=== PATIENT | female | born 1940 | race Caucasian/White ===

== ENCOUNTER 2019-10-16 11:01 | Outpatient (CLI) | payer MEDICARE, BC, SELFPAY ==
[2019-10-16 11:23] VITALS: BP 145/87; PULSE 73; RESP 20; TEMP 36.8; O2SAT 98
[2019-10-16] MEDS: denosumab 60 mg SDV SUBCUT (11:30)
[2019-10-16 12:00] VITALS: BP 142/91; PULSE 96; RESP 16; TEMP 36.6; O2SAT 96
== END 2019-10-16 11:02 | disposition home or self-care (01) ==
LOC: RHEOACUTE 11:02
PROVIDERS: Visit Provider Internal Medicine Rheumatology
DX: M81.0 Age-related osteoporosis without current pathological fracture (principal)
CPT/HCPCS: 96372; J0897

== ENCOUNTER 2019-12-06 08:58 | Emergency (ER) | payer MEDICARE, BC, SELFPAY ==
[2019-12-06 09:06] VITALS: BP 179/117; PULSE 93; RESP 18; TEMP 36; O2SAT 96; BMI 24.8
--- NOTE | 2019-12-06 09:13 | ECG_ITS ---
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 Measurements Intervals [place] Rate: 79 P: 77 [place]: 175 QRS: 63 QRSD: 156 T: 115 QT: 382 QTc: 440 Interpretive Statements SINUS RHYTHM LEFT BUNDLE BRANCH BLOCK [120+ ms QRS DURATION, 80+ ms Q/S IN V1/V2, 85+ ms R IN I/aVL/V5/V6] No previous ECG available for comparison Electronically Signed On 12-06-2019 20:53:02 CDT by Jonah Matias M.D. [id number]
--- NOTE | 2019-12-06 09:13 | XRR_ITS ---
PROCEDURE INFORMATION: Exam: XR Chest, 1 View Exam date and time: 12/06/2019 10:30 AM Age: 79 years old Clinical indication: Dyspnea; Additional info: Dyspnea/cough TECHNIQUE: Imaging protocol: XR of the chest Views: 1 view. COMPARISON: [facility] Chest 2 views 10/07/2018 9:25 AM FINDINGS: Lungs: Hyperinflation. No CHF or focal consolidation. Pleural space: Bilateral apical pleural thickening. No pleural effusion. No pneumothorax. Heart/Mediastinum: Aortic tortuosity. No cardiomegaly. Bones/joints: No acute findings. XR/XR chest 1V portable [id number] IMPRESSION: No acute findings.
[2019-12-06 09:28] VITALS: O2SAT 100
--- NOTE | 2019-12-06 09:28 | CTR_ITS ---
PROCEDURE INFORMATION: Exam: CT Head Without Contrast Exam date and time: 12/06/2019 9:51 AM Age: 79 years old Clinical indication: Other: Loss of vision and headache; Additional info: Loss of left field of vision TECHNIQUE: Imaging protocol: Computed tomography of the head without contrast. Radiation optimization: All CT scans at this facility use at least one of these dose optimization techniques: automated exposure control; mA and/or kV adjustment per patient size (includes targeted exams where dose is matched to clinical indication); or iterative reconstruction. COMPARISON: No relevant prior studies available. RADIATION DOSE METRICS: Total DLP (mGy-cm): 536.43 FINDINGS: Brain: Acute right parieto-occipital hemorrhage estimated at 2.5 cm maximum diameter. Minimal adjacent edema, no significant mass effect. Chronic ischemic change. Ventricles: No hydrocephalus or intraventricular hemorrhage. Bones/joints: Unremarkable. No acute fracture. Sinuses: No acute sinusitis. Mastoid air cells: Unremarkable. Soft tissues: Unremarkable. CT/CT head wo con* [id number] IMPRESSION: Acute right parieto-occipital hemorrhage, approximately 2.5 cm in diameter. THIS REPORT CONTAINS FINDINGS THAT MAY BE CRITICAL TO PATIENT CARE. The findings were verbally communicated via telephone conference with Micheal Valdez at 11:14 AM CDT on 12/06/2019. The findings were acknowledged and understood. Radiation Dose CTDIVOL = (mGy): DLP = 536.43 (mGy-cm)
--- NOTE | 2019-12-06 09:31 | ED_ITS ---
HPI - Headache General: Chief Complaint: Headache Stated Complaint: H/A LOST VISION LAST NIGHT Time Seen by Provider: 12/06/19 09:12 History of Present Illness: HPI Narrative: 79-year-old female presents emergency room with complaint of loss of the left side visual field. Its been going on since last night initially she had some disorientation with that that part is resolved she still has complaint of left visual field deficit. She has a headache she relates to mostly in the right frontal side. She has no nausea or vomiting associated with it she not had any chest pain or shortness of breath. She denies history of diabetes or hypertension although her blood pressure is elevated today. No history of trauma to the head or fall she has not had any syncopal episodes. She did have what amounts to a floater prior to this episode that she noted usually in her left thigh that has seemed to resolve. MD elicited complaint: headache and other (Visual field changes) Onset (ago): hour(s) Onset description: suddenly Location: right and frontal Severity: mild Quality & Timing: aching and throbbing Exacerbating factors: none Relieving factors: nothing Context: occurred at rest Associated symptoms: Reports no associated symptoms, confusion and loss of vision; Deny chest pain, cough, diaphoresis, eye pain, eye redness, fever(s), lightheadedness, malaise, nausea, neck stiffness, numbness, paresthesias, pre- syncope, rash, seizures, short of breath, sound sensitivity, syncope, vomiting or weakness Treatments prior to arrival: none Review of Systems Const: Denies: fever(s), malaise or diaphoresis ENMT: Denies: throat pain, ear or mastoid pain, nasal discharge or nasal congestion Card: Denies: chest pain, lightheadedness, syncope or pre-syncope Resp: Denies: dyspnea, productive cough or non-productive cough GI: Denies: nausea or vomiting : Denies: flank pain, difficulty voiding, dysuria, urinary frequency or urinary urgency Skin/Breast: Denies: rash or pruritus Neuro: Reports: confusion PFSH ED PFSH: Medical History (Updated 12/06/19 @ 09:36 by Micheal Valdez DO) Chronic lung disease Ganglion and cyst of synovium, tendon and bursa Hypothyroidism Surgical History (Updated 12/06/19 @ 09:36 by Micheal Valdez DO) H/O dilation and curettage Social History (Updated 12/06/19 @ 09:36 by Micheal Valdez DO) Smoking and tobacco status: never smoked Alcohol intake: never Physical Exam Const: COMMON NORMALS: no acute distress GENERAL APPEARANCE: cooperative and comfortable ORIENTATION/CONSCIOUSNESS: Yes awake, Yes oriented to person, Yes oriented to place and Yes oriented to time HENMT: COMMON NORMALS: normocephalic, atraumatic and hearing grossly normal bilaterally HEAD & SCALP: normocephalic and atraumatic Eye: COMMON NORMALS: Equal, round and reactive pupils present, EOMs intact bilaterally, conjunctivae normal and no scleral icterus CONJUNCTIVA: Yes conjunctivae normal PUPIL: Yes Equal, round and reactive pupils present OTHER: On field of vision testing patient has a significant left field of vision deficit. There is no neglect. Neck/C-Spine: COMMON NORMALS: full ROM, no lymphadenopathy, supple and no JVD Lymph: LYMPHATIC: no lymphadenopathy noted and no lymphedema noted Resp: COMMON NORMALS: normal respiratory effort, No retractions, No use of accessory muscles and clear to auscultation bilaterally AUSCULTATION: clear to auscultation bilaterally Cardio: COMMON NORMALS: no JVD, regular rate, regular rhythm and No murmurs present (Cardio) RATE: regular rate RHYTHM: regular rhythm GI: COMMON NORMALS: Soft to palpation and No hepatosplenomegaly present AUSCULTATION: Yes normoactive bowel sounds PALPATION: Yes Soft to palpation, No Tenderness to palpation present (GI), No Guarding due to palpation present (GI) and Yes No hepatosplenomegaly present Extremity: COMMON NORMALS: normal to inspection, capillary refill normal, no clubbing, cyanosis or edema, no calf tenderness and no pedal edema Neuro: SENSORIUM/ORIENTATION: Yes oriented to person, Yes oriented to place and Yes oriented to time Skin: COMMON NORMALS: no rashes or lesions noted GENERAL SKIN EXAM: no rashes or lesions noted Course Vital Signs: Vital signs: Vital Signs Temperature 96.8 F L 12/06/19 09:06 Pulse Rate 80 12/06/19 12:40 Respiratory Rate 20 H 12/06/19 12:40 Blood Pressure 146/96 12/06/19 12:40 Pulse Oximetry 100 12/06/19 12:40 MDM - Headache MDM Narrative: Medical decision making narrative: Right occipital intracranial hemorrhage 2.[address] head discussed with the patient she is stable at this time still has a left visual field deficit. We will transfer her to [facility] for evaluation and monitoring by neurosurgery neurosurgery not available at [facility]. Lab Data: Labs: Lab Results 12/06/19 12/06/19 12/06/19 Range/Units 09:29 09:29 10:21 WBC 4.4 (4.0-10.0) 10^3/ uL RBC 4.77 (4.1-5.3) 10^6/u L Hgb 14.3 (11.5-15.3) g/dL Hct 45.7 (37.0-47.0) % MCV 95.8 (81-99) fL MCH 30.0 (28.0-34.0) pg MCHC 31.3 (30.0-36.0) g/dL RDW 13.1 (12.1-15.1) % Plt Count 195 (130-400) 10^3/c mm MPV 10.3 (7.4-10.4) fL Neut % (Auto) 70.4 % Lymph % (Auto) 18.9 % [place] % (Auto) 7.5 % Eos % (Auto) 2.5 % Baso % (Auto) 0.5 % Neut # (Auto) 3.08 (1.8-7.7) 10^3/u L Lymph # (Auto) 0.8 (0.8-4.8) 10^3/u L [place] # (Auto) 0.3 (0.2-0.9) 10^3/u L Eos # (Auto) 0.1 (0.0-0.8) 10^3/u L Baso # (Auto) 0.0 (0.0-0.1) 10^3/u L Nucleated RBC % (a uto) 0 % Nucleated RBCs # 0.0 /100WBC Sodium 140 (136-145) mmol/L Potassium 4.1 (3.5-5.1) mmol/L Chloride 102 (98-107) mmol/L Carbon Dioxide 31 H (22-29) mmol/L Anion Gap 11.1 (5-19) BUN 13 (8-23) mg/dL Creatinine 0.6 (0.5-0.9) mg/dL GFR Calculation Not Reportable Glucose 99 (65-115) mg/dL Calculated Osmolal ity 286 (285-295) mOsm/k g Calcium 8.9 (8.5-10.5) mg/dL Magnesium 1.9 (1.7-2.3) mg/dL Total Bilirubin 0.7 (0.15-1.2) mg/dL AST 13 (0-32) U/L ALT 10 (0-33) U/L Alkaline Phosphata se 44 (35-105) IU/L Total Protein 6.9 (6.6-8.7) g/dL Albumin 4.2 (3.5-5.2) g/dL Globulin 2.7 (1.3-4.6) g/dL Urine Color Yellow (Yellow) Urine Appearance Clear (CLEAR) Urine pH 8 H (5-7) Ur Specific Gravit y 1.010 (1.005-1.030) Urine Protein Neg (Negative) Urine Glucose (UA) Norm (Normal) Urine Ketones Negative (Negative) Urine Blood Neg (Negative) Urine Nitrate Negative (Negative) Urine Bilirubin Neg (NEGATIVE) Prot Sulfosalicyli c Acd Negative (Negative) Urine Urobilinogen Norm (Negative) mg/dL Ur Leukocyte Claudette ase Negative (Negative) Discharge Plan Discharge Patient Disposition: Transfer to ED Prescriptions: No Action ipratropium-albuterol 0.5 mg-3 mg(2.5 mg base)/3 mL solution for nebulization 3 ml INHALATION TID RF: 0 albuterol sulfate 2.5 mg /3 mL (0.083 %) solution for nebulization 2.5 mg inhalation Q4H PRN (Reason: Shortness Of Breath) RF: 0 Tylenol Extra Strength 500 mg Tablet 500 mg PO PRN RF: 0 Synthroid 50 mcg tablet 50 mcg PO DAILY RF: 0 budesonide 0.5 mg/2 mL suspension for nebulization 0.5 mg inhalation BID RF: 0 albuterol sulfate 90 mcg/actuation HFA aerosol inhaler 2 puff INHALATION QID PRN (Reason: Shortness Of Breath) RF: 0 Echinacea and Goldenseal 450 mg Capsule See Rx Instructions .ROUTE .COMPLEX RF: 0 Discharge Date/Time: 12/06/19 13:31 Coding Level of Care Code ED Senior Backup Administrator for Chg Fwd Exam Comprehensive
[2019-12-06 09:42] LABS: Basophils % 0.5 %; Eosinophils # 0.1 10^3/uL (0.0-0.8); Eosinophils % 2.5 %; Hematocrit 45.7 % (37.0-47.0); Hemoglobin 14.3 g/dL (11.5-15.3); Lymphocytes # 0.8 10^3/uL (0.8-4.8); Lymphocytes % 18.9 %; Mean Corpuscular HGB Conc 31.3 g/dL (30.0-36.0); Mean Corpuscular Volume 95.8 fL (81-99); Mean Platelet Volume 10.3 fL (7.4-10.4); Monocytes # 0.3 10^3/uL (0.2-0.9); Monocytes % 7.5 %; Neutrophils # 3.08 10^3/uL (1.8-7.7); Neutrophils % 70.4 %; Nucleated Red Blood Cells % 0 %; Platelet Count 195 10^3/cmm (130-400); Red Blood Count 4.77 10^6/uL (4.1-5.3); Red Cell Distribution Width 13.1 % (12.1-15.1); White Blood Count 4.4 10^3/uL (4.0-10.0)
[2019-12-06 10:15] LABS: Alanine Aminotransferase 10 U/L (0-33); Albumin Level 4.2 g/dL (3.5-5.2); Alkaline Phosphatase 44 IU/L (35-105); Anion Gap 11.1 (5-19); Aspartate Amino Transferase 13 U/L (0-32); Blood Urea Nitrogen 13 mg/dL (8-23); Calcium 8.9 mg/dL (8.5-10.5); Carbon Dioxide 31 mmol/L (22-29); Chloride 102 mmol/L (98-107); Globulin 2.7 g/dL (1.3-4.6); Glucose 99 mg/dL (65-115); Magnesium 1.9 mg/dL (1.7-2.3); Osmolality Calculated 286 mOsm/kg (285-295); Potassium 4.1 mmol/L (3.5-5.1); Sodium 140 mmol/L (136-145); Total Bilirubin 0.7 mg/dL (0.15-1.2); Total Protein 6.9 g/dL (6.6-8.7)
[2019-12-06 10:40] LABS: Add Urine Microscopic? NO
[2019-12-06 10:49] LABS: Glucose Urine UA Norm (Normal); Ketones Urine Negative (Negative); Protein Urine Neg (Negative); Urine Appearance Clear (CLEAR); Urine Color Yellow (Yellow); pH Urine 8 (5-7)
[2019-12-06 10:50] LABS: Bilirubin Urine Neg (NEGATIVE); Blood Urine Neg (Negative); Leukocyte Esterase Urine Negative (Negative); Nitrate Urine Negative (Negative); Sulfosalicylic Acid Urine Negative (Negative); Urobilinogen Urine Norm (Negative)
[2019-12-06 12:40] VITALS: BP 146/96; PULSE 80; RESP 20; O2SAT 100
== END 2019-12-06 13:31 ==
PROVIDERS: Emergency Provider Family Medicine
DX: R51 Headache (principal)
CPT/HCPCS: 12345; 36415; 70450; 71045; 80053; 81003; 83735; 85025; 93005; 99283; 99285

== ENCOUNTER 2020-03-31 09:51 | Emergency (ER) | payer MEDICARE, BC, SELFPAY ==
[2020-03-31 09:58] VITALS: BP 182/109; PULSE 90; RESP 18; TEMP 37.1; O2SAT 98; BMI 25.3
--- NOTE | 2020-03-31 10:02 | W.ED.LOWEXIN ---
HPI - Extremity Injury (Lower) General: Chief Complaint: Extremity Problem,Nontraumatic Stated Complaint: RIGHT LEG PAIN Time Seen by Provider: 03/31/20 10:01 Source: patient Mode of arrival: ambulatory Limitations: no limitations History of Present Illness: HPI Narrative: 80-year-old female comes in with right calf pain. Patient reports that she has had this increased pain and tenderness to her right calf starting this morning. Patient had taken a half a tablet of tramadol without any relief. Patient does have a history of CVA. Patient is also concerned for DVT. Review of Systems General: Reports: 10 or more systems reviewed and unremarkable except in HPI and below Musc: Reports: other (Right calf pain.) PFS ED PFSH: Medical History (Updated 03/31/20 @ 11:29 by SAYRA Hernandez) Chronic lung disease Ganglion and cyst of synovium, tendon and bursa Hypothyroidism Surgical History (Updated 12/06/19 @ 09:36 by Micheal Valdez DO) H/O dilation and curettage Social History (Updated 12/06/19 @ 09:36 by Micheal Valdez DO) Smoking and tobacco status: never smoked Alcohol intake: never Physical Exam Const: COMMON NORMALS: no acute distress, patient oriented x3 and alert GENERAL APPEARANCE: cooperative HENMT: COMMON NORMALS: normocephalic and Normal external nose present HEAD & SCALP: normal to inspection and normocephalic NOSE: Normal external nose present MOUTH: Normal oral and palatal mucosa present THROAT: posterior oropharynx normal Eye: GENERAL EYE: appearance normal, both eyes and all related structures Neck/C-Spine: COMMON NORMALS: full ROM Lymph: LYMPHATIC: no lymphadenopathy noted Chest: COMMONS NORMALS: normal inspection of the chest Resp: COMMON NORMALS: normal respiratory effort EFFORT & INSPECTION: Yes able to speak in complete sentences Cardio: COMMON NORMALS: regular rate and regular rhythm RATE: regular rate RHYTHM: regular rhythm GI: COMMON NORMALS: non-tender : COMMON NORMALS: Yes no CVA tenderness BLADDER/KIDNEY EXAM: Yes no CVA tenderness Back/Pelvis: COMMON NORMALS: no CVA tenderness and thoracic and lumbar spine normal to inspection Extremity: NARRATIVE EXTREMITY EXAM: Weakness to the right lower extremity, calf tenderness, positive Homans side right side. Neuro: ERIS COMA SCALE: document GCS findings [place] coma scale eye opening: Spontaneous [place] coma scale verbal response: Orientated [place] coma scale motor response: Obey commands [place] coma scale total score: 15 COMMON NORMALS: patient oriented x3 and moves all extremities SENSORIUM/ORIENTATION: Yes alert COORDINATION/BALANCE: [id number] test normal SPEECH: speech normal GAIT: Yes Antalgic gait present COORDINATION: [id number] test normal Psych: COMMON NORMALS: mental status grossly normal and cooperative Skin: COMMON NORMALS: no rashes or lesions noted GENERAL SKIN EXAM: no rashes or lesions noted Course Vital Signs: Vital signs: Vital Signs Temperature 98.8 F 03/31/20 09:58 Pulse Rate 72 03/31/20 11:05 Respiratory Rate 16 03/31/20 11:05 Blood Pressure 148/87 03/31/20 11:05 Pulse Oximetry 98 03/31/20 11:05 MDM - Extremity Injury (Lower) MDM Narrative: Medical decision making narrative: 80-year-old female comes in with right lower leg pain in the calf. Patient was concerned for a blood clot. On exam there was some weakness noted to the extremity. Normal sensation. No swelling or redness was noted. Skin was warm and dry. Pulse was intact. Differential diagnosis includes not limited to stroke syndrome, DVT, muscle cramp. DVT ultrasound was negative. CT of the head showed no changes. Laboratory values were unremarkable. Reviewed exam with patient recommended treatment for musculoskeletal pain. Patient reported understanding and agreed to plan. Lab Data: Labs: Lab Results 03/31/20 03/31/20 03/31/20 Range/Units 10:24 10:24 10:24 WBC 5.3 (4.0-10.0) 10^3/ uL RBC 4.43 (4.1-5.3) 10^6/u L Hgb 13.3 (11.5-15.3) g/dL Hct 42.8 (37.0-47.0) % MCV 96.6 (81-99) fL MCH 30.0 (28.0-34.0) pg MCHC 31.1 (30.0-36.0) g/dL RDW 13.1 (12.1-15.1) % Plt Count 172 (130-400) 10^3/c mm MPV 10.9 H (7.4-10.4) fL Neut % (Auto) 72.1 % Lymph % (Auto) 16.3 % [place] % (Auto) 9.3 % Eos % (Auto) 1.7 % Baso % (Auto) 0.4 % Neut # (Auto) 3.81 (1.8-7.7) 10^3/u L Lymph # (Auto) 0.9 (0.8-4.8) 10^3/u L [place] # (Auto) 0.5 (0.2-0.9) 10^3/u L Eos # (Auto) 0.1 (0.0-0.8) 10^3/u L Baso # (Auto) 0.0 (0.0-0.1) 10^3/u L Nucleated RBC % (a uto) 0 % Nucleated RBCs # 0.0 /100WBC PT 11.90 L (12.1-14.9) SECO NDS INR 0.85 (0.8-1.2) APTT 24.4 (23.9-36.7) SECO NDS D-Dimer 0.49 (0-0.59) ug/mIFE U Sodium 137 (136-145) mmol/L Potassium 4.0 (3.5-5.1) mmol/L Chloride 100 (98-107) mmol/L Carbon Dioxide 29 (22-29) mmol/L Anion Gap 12.0 (5-19) BUN 12 (8-23) mg/dL Creatinine 0.5 (0.5-0.9) mg/dL GFR Calculation Not Reportable Glucose 85 (65-115) mg/dL Calculated Osmolal ity 283 L (285-295) mOsm/k g Calcium 8.8 (8.5-10.5) mg/dL Total Bilirubin 0.6 (0.15-1.2) mg/dL AST 14 (0-32) U/L ALT 12 (0-33) U/L Alkaline Phosphata se 57 (35-105) IU/L Total Protein 6.5 L (6.6-8.7) g/dL Albumin 4.1 (3.5-5.2) g/dL Globulin 2.4 (1.3-4.6) g/dL Urine Color (Yellow) Urine Appearance (CLEAR) Urine pH (5-7) Ur Specific Gravit y (1.005-1.030) Urine Protein (Negative) Urine Glucose (UA) (Normal) Urine Ketones (Negative) Urine Blood (Negative) Urine Nitrate (Negative) Urine Bilirubin (Negative) Urine Urobilinogen (Negative) mg/dL Ur Leukocyte Claudette ase (Negative) 03/31/20 Range/Units 10:24 WBC (4.0-10.0) 10^3/ uL RBC (4.1-5.3) 10^6/u L Hgb (11.5-15.3) g/dL Hct (37.0-47.0) % MCV (81-99) fL MCH (28.0-34.0) pg MCHC (30.0-36.0) g/dL RDW (12.1-15.1) % Plt Count (130-400) 10^3/c mm MPV (7.4-10.4) fL Neut % (Auto) % Lymph % (Auto) % [place] % (Auto) % Eos % (Auto) % Baso % (Auto) % Neut # (Auto) (1.8-7.7) 10^3/u L Lymph # (Auto) (0.8-4.8) 10^3/u L [place] # (Auto) (0.2-0.9) 10^3/u L Eos # (Auto) (0.0-0.8) 10^3/u L Baso # (Auto) (0.0-0.1) 10^3/u L Nucleated RBC % (a uto) % Nucleated RBCs # /100WBC PT (12.1-14.9) SECO NDS INR (0.8-1.2) APTT (23.9-36.7) SECO NDS D-Dimer (0-0.59) ug/mIFE U Sodium (136-145) mmol/L Potassium (3.5-5.1) mmol/L Chloride (98-107) mmol/L Carbon Dioxide (22-29) mmol/L Anion Gap (5-19) BUN (8-23) mg/dL Creatinine (0.5-0.9) mg/dL GFR Calculation Glucose (65-115) mg/dL Calculated Osmolal ity (285-295) mOsm/k g Calcium (8.5-10.5) mg/dL Total Bilirubin (0.15-1.2) mg/dL AST (0-32) U/L ALT (0-33) U/L Alkaline Phosphata se (35-105) IU/L Total Protein (6.6-8.7) g/dL Albumin (3.5-5.2) g/dL Globulin (1.3-4.6) g/dL Urine Color Yellow (Yellow) Urine Appearance Clear (CLEAR) Urine pH 7.0 (5-7) Ur Specific Gravit y 1.010 (1.005-1.030) Urine Protein Neg (Negative) Urine Glucose (UA) Norm (Normal) Urine Ketones Negative (Negative) Urine Blood Neg (Negative) Urine Nitrate Negative (Negative) Urine Bilirubin Neg (Negative) Urine Urobilinogen Norm (Negative) mg/dL Ur Leukocyte Claudette ase Negative (Negative) Discharge Plan Discharge Patient Disposition: Home Clinical Impression: Acute pain of right lower extremity Condition: Stable Prescriptions: No Action ipratropium-albuterol 0.5 mg-3 mg(2.5 mg base)/3 mL solution for nebulization 3 ml INHALATION TID RF: 0 albuterol sulfate 2.5 mg /3 mL (0.083 %) solution for nebulization 2.5 mg inhalation Q4H PRN (Reason: Shortness Of Breath) RF: 0 Tylenol Extra Strength 500 mg Tablet 500 mg PO PRN RF: 0 Synthroid 50 mcg tablet 50 mcg PO DAILY RF: 0 budesonide 0.5 mg/2 mL suspension for nebulization 0.5 mg inhalation BID RF: 0 albuterol sulfate 90 mcg/actuation HFA aerosol inhaler 2 puff INHALATION QID PRN (Reason: Shortness Of Breath) RF: 0 Echinacea and Goldenseal 450 mg Capsule See Rx Instructions .ROUTE .COMPLEX RF: 0 Discharge Orders: Discharge ED (Routine); Ordered 03/31/20 Ordered By: Sanchez Trejo Referrals: Rishabh Sin DO [Primary Care Provider] - Discharge Diet: Usual diet Discharge Activity: Increase activity as tolerated Patient Instructions: Musculoskeletal Pain (ED) Activity Restrictions/Additional Instructions: Activity as tolerated. Gentle stretching and range of motion exercises of the leg. Monitor for increased swelling or redness or fever in the extremity. Drink plenty of water. Continue with routine care. Follow-up with primary care as needed. Return to the emergency department for new concerns or worsening symptoms. Coding Level of Care Code ED Mortgage Loan Computation Clerk for Chg Fwd Exam Comprehensive
[2020-03-31 10:05] VITALS: BP 159/103; PULSE 78; RESP 18; O2SAT 99
--- NOTE | 2020-03-31 10:08 | CT_ITS ---
WS: [id number] CT HEAD NONCONTRAST HISTORY: weakness right leg TECHNIQUE: Contiguous axial imaging performed through the brain in 2.5 mm imaging. Bone and soft tiss ue windows. Sagittal and coronal reformats reviewed. All CT scans at [facility] use at ast one of these dose optimization techniques: automated exposure control; mA and/or kV adjustment pe r patient size (includes targeted exams where dose is matched to clinical indication); or iterative r econstruction. DLP: 804.89 mGy.cm COMPARISON: 12/06/2019 No acute intracranial hemorrhage, midline shift or mass effect. Mild atrophy with significant chronic white matter ischemic changes. Prior infarct in the RIGHT parie matteo occipital region in the area of previous the described hemorrhage. No new hemorrhage. Numerous la cunar infarcts in the basal ganglia and external capsules. Ventricles: Normal size with no hydrocephalus. Paranasal sinuses: As visualized are clear. Mastoid air cells: Well pneumatized. Calvarium and scalp: Skull is intact with no soft tissue edema or swelling. CT/CT head wo con* [id number] IMPRESSION: 1. No acute intracranial hemorrhage or edema. 2. Severe chronic white matter disease with multiple prior lacunar infarcts an d a prior large infarct in the RIGHT occipital parietal region.
--- NOTE | 2020-03-31 10:08 | USCV_ITS ---
Daysiteresita Ysabel Age: 80 Gender: F : 1940 Exam Date: 03/31/2020 10:26 Ordering Phys: Sanchez Trejo Technologist: Vivian Bustamante [place] [facility] [place]: rt leg pain HISTORY: Lower extremity pain. PROCEDURES: Venous duplex imaging was performed in only the right lower extremity. The following venous structures were evaluated: common femoral vein, profunda vein, proximal portion of the greater saphenous vein, superficial femoral vein, and the popliteal vein. In addition, the posterior tibial and peroneal trunk were evaluated. FINDINGS: Normal 2-D Doppler and augmentation and compressibility throughout the lower extremity venous structures. Additional imaging through the proximal calf veins also reveals no thrombus. Limited evaluation of the greater saphenous vein is patent with no thrombus. CONCLUSIONS No DVT right lower extremity. Dr. Margarita Lopez DO (Electronically Signed) Final Date: 31 March 2020 13:40 S
[2020-03-31 10:29] VITALS: PULSE 78
[2020-03-31 10:36] LABS: Add Urine Microscopic? NO
[2020-03-31 10:39] LABS: Basophils % 0.4 %; Eosinophils # 0.1 10^3/uL (0.0-0.8); Eosinophils % 1.7 %; Hematocrit 42.8 % (37.0-47.0); Hemoglobin 13.3 g/dL (11.5-15.3); Lymphocytes # 0.9 10^3/uL (0.8-4.8); Lymphocytes % 16.3 %; Mean Corpuscular HGB Conc 31.1 g/dL (30.0-36.0); Mean Corpuscular Volume 96.6 fL (81-99); Mean Platelet Volume 10.9 fL (7.4-10.4); Monocytes # 0.5 10^3/uL (0.2-0.9); Monocytes % 9.3 %; Neutrophils # 3.81 10^3/uL (1.8-7.7); Neutrophils % 72.1 %; Nucleated Red Blood Cells % 0 %; Platelet Count 172 10^3/cmm (130-400); Red Blood Count 4.43 10^6/uL (4.1-5.3); Red Cell Distribution Width 13.1 % (12.1-15.1); White Blood Count 5.3 10^3/uL (4.0-10.0)
[2020-03-31 10:55] LABS: INR 0.85 (0.8-1.2)
[2020-03-31 10:56] LABS: Partial Thromboplastin Time 24.4 SECONDS (23.9-36.7)
[2020-03-31 10:58] LABS: D Dimer 0.49 ug/mIFEU (0-0.59)
[2020-03-31 11:04] LABS: Alanine Aminotransferase 12 U/L (0-33); Albumin Level 4.1 g/dL (3.5-5.2); Alkaline Phosphatase 57 IU/L (35-105); Aspartate Amino Transferase 14 U/L (0-32); Blood Urea Nitrogen 12 mg/dL (8-23); Calcium 8.8 mg/dL (8.5-10.5); Carbon Dioxide 29 mmol/L (22-29); Chloride 100 mmol/L (98-107); Creatinine Clr Calc Pharmacy 57.6702; Globulin 2.4 g/dL (1.3-4.6); Glucose 85 mg/dL (65-115); Osmolality Calculated 283 mOsm/kg (285-295); Sodium 137 mmol/L (136-145); Total Bilirubin 0.6 mg/dL (0.15-1.2); Total Protein 6.5 g/dL (6.6-8.7)
[2020-03-31 11:05] VITALS: BP 148/87; PULSE 72; RESP 16; O2SAT 98
[2020-03-31 11:10] LABS: Bilirubin Urine Neg (Negative); Blood Urine Neg (Negative); Glucose Urine UA Norm (Normal); Ketones Urine Negative (Negative); Leukocyte Esterase Urine Negative (Negative); Nitrate Urine Negative (Negative); Protein Urine Neg (Negative); Urine Appearance Clear (CLEAR); Urine Color Yellow (Yellow); Urobilinogen Urine Norm (Negative)
[2020-03-31 11:34] VITALS: BP 148/67; PULSE 76; RESP 18; TEMP 36.6; O2SAT 76
== END 2020-03-31 11:52 | disposition home or self-care (01) ==
PROVIDERS: Emergency Provider Nurse Practitioner Family; PCP Internal Medicine
DX: M79.604 Pain in right leg (principal)
CPT/HCPCS: 12345; 70450; 80053; 81003; 85025; 85378; 85610; 85730; 93971; 99282; 99283

== ENCOUNTER 2020-06-22 13:55 | Outpatient (CLI) | payer OTHER, SELFPAY ==
[2020-06-22 14:40] VITALS: BP 137/93; PULSE 81; RESP 16; TEMP 37.2; O2SAT 98
[2020-06-22] MEDS: denosumab 60 mg SDV SUBCUT (14:40)
== END 2020-06-22 13:56 | disposition home or self-care (01) ==
PROVIDERS: PCP Internal Medicine; Visit Provider Internal Medicine
DX: M81.0 Age-related osteoporosis without current pathological fracture (principal)
CPT/HCPCS: 96372; J0897

== ENCOUNTER 2020-12-24 10:52 | Outpatient (CLI) | payer MEDICARE, BC, SELFPAY ==
[2020-12-24 11:29] VITALS: BP 135/83; PULSE 90; RESP 20; TEMP 37.7; O2SAT 97
[2020-12-24] MEDS: denosumab 60 mg SDV SUBCUT (11:32)
[2020-12-24 11:35] VITALS: BP 133/90; PULSE 80; RESP 18; TEMP 37.4; O2SAT 99
== END 2020-12-24 10:53 | disposition home or self-care (01) ==
LOC: ONCMED 10:56
PROVIDERS: PCP Internal Medicine; Referring Provider Internal Medicine; Visit Provider Internal Medicine
DX: M81.0 Age-related osteoporosis without current pathological fracture (principal)
CPT/HCPCS: 96372; J0897

== ENCOUNTER 2021-06-28 10:59 | Outpatient (CLI) | payer MEDICARE, BC, SELFPAY ==
[2021-06-28] MEDS: denosumab 60 mg SDV SUBCUT (11:38)
== END 2021-06-28 11:00 | disposition home or self-care (01) ==
PROVIDERS: PCP Internal Medicine; Referring Provider Internal Medicine; Visit Provider Internal Medicine
DX: M81.0 Age-related osteoporosis without current pathological fracture (principal)
CPT/HCPCS: 96372; J0897

== ENCOUNTER 2022-01-02 09:59 | Outpatient (CLI) | payer MEDICARE, BC, SELFPAY ==
[2022-01-02 10:04] VITALS: BP 136/81; PULSE 91; RESP 18; TEMP 36.9; O2SAT 90
[2022-01-02] MEDS: denosumab 60 mg SDV SUBCUT (10:18)
[2022-01-02 10:25] VITALS: BP 116/80; PULSE 93; RESP 18; TEMP 37.4; O2SAT 91
== END 2022-01-02 10:00 | disposition home or self-care (01) ==
PROVIDERS: PCP Internal Medicine; Visit Provider Internal Medicine
DX: M81.0 Age-related osteoporosis without current pathological fracture (principal)
CPT/HCPCS: 96372; J0897

== ENCOUNTER 2022-02-03 15:04 | Emergency (ER) | payer MEDICARE, BC, SELFPAY ==
[2022-02-03 15:06] VITALS: BP 180/109; PULSE 85; RESP 20; TEMP 36.2; O2SAT 99; BMI 19.2
--- NOTE | 2022-02-03 15:19 | ECG_ITS ---
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 Measurements Intervals [place] Rate: 77 P: 82 GA: 162 QRS: 64 QRSD: 150 T: 78 QT: 393 QTc: 446 Interpretive Statements SINUS RHYTHM LEFT BUNDLE BRANCH BLOCK [120+ ms QRS DURATION, 80+ ms Q/S IN V1/V2, 85+ ms R IN I/aVL/V5/V6] Compared to ECG 12/06/2019 09:34:17 No significant changes Electronically Signed On 02-03-2022 17:08:44 CDT by Brandi Breaux M.D. [id number] f
--- NOTE | 2022-02-03 15:19 | XR_ITS ---
WS: [id number] Exam: XR chest 1V portable [id number] Date/Time of Exam: 02/03/2022 3:39 PM Reason For Exam: cp Comparison 12/06/2019. The lungs are hyperinflated and clear. Cardiomediastinal silhouette is unremarkable. No pleural effus ions. Regional bony elements are intact. Monitoring leads superimpose the chest. XR/XR chest 1V portable [id number] IMPRESSION: 1. Pulmonary hyperinflation most likely indicating obstructive lung disease. No acute process noted.
[2022-02-03 15:39] VITALS: BP 180/109; PULSE 85; RESP 20; TEMP 36.2; O2SAT 99
[2022-02-03 15:39] LABS: Basophils % 0.7 %; Eosinophils % 0.9 %; Hematocrit 44.9 % (37.0-47.0); Hemoglobin 13.9 g/dL (11.5-15.3); Lymphocytes # 0.9 10^3/uL (0.8-4.8); Lymphocytes % 19.2 %; Mean Corpuscular Hemoglobin 30.6 pg (28.0-34.0); Mean Corpuscular Volume 98.9 fl (81-99); Mean Platelet Volume 10.2 fL (7.4-10.4); Monocytes # 0.3 10^3/uL (0.2-0.9); Neutrophils # 3.26 10^3/uL (1.8-7.7); Neutrophils % 71.8 %; Nucleated Red Blood Cells % 0 %; Platelet Count 221 10^3/cmm (130-400); Red Blood Count 4.54 10^6/uL (4.1-5.3); Red Cell Distribution Width 13.1 % (12.1-15.1); White Blood Count 4.5 10^3/uL (4.0-10.0)
--- NOTE | 2022-02-03 15:44 | W.ED.CHESTPA ---
HPI - Chest Pain General: Chief Complaint: Chest Pain Stated Complaint: hypertension Time Seen by Provider: 02/03/22 15:19 History of Present Illness: Ms. Ceron is an 82-year-old lady history of COPD with chronic hypoxic respiratory failure presenting to the emergency department due to generalized discomfort. She notes body aches and generalized malaise starting a few days ago. Apparently hospice nurse came by her house and was checking her vitals and noted that she was hypertensive. Patient reports breathing is baseline and no associated chest pain. Denies GI symptoms. Intensity symptoms is moderate. Does have sick contacts. Course has persisted. No other specific changes in health, exacerbating, or alleviating factors identified. Onset (ago): hour(s) Onset: during rest Associated symptoms: Reports other Review of Systems General: Reports: 10 or more systems reviewed and unremarkable except in HPI and below PFSH ED PFSH: Medical History (Updated 02/03/22 @ 18:19 by Aydin Pham MD) Chronic lung disease Ganglion and cyst of synovium, tendon and bursa Hypothyroidism Surgical History (Updated 12/06/19 @ 09:36 by Micheal Valdez DO) H/O dilation and curettage Social History (Updated 12/06/19 @ 09:36 by Micheal Valdez DO) Smoking and tobacco status: never smoked Alcohol intake: never Physical Exam Const: COMMON NORMALS: alert GENERAL APPEARANCE: cooperative and well developed HENMT: COMMON NORMALS: normocephalic and atraumatic HEAD & SCALP: normocephalic and atraumatic Eye: COMMON NORMALS: conjunctivae normal CONJUNCTIVA: Yes conjunctivae normal SCLERA: sclerae normal Neck/C-Spine: COMMON NORMALS: supple GENERAL: Yes trachea midline Resp: COMMON NORMALS: clear to auscultation bilaterally EFFORT & INSPECTION: Yes able to speak in complete sentences AUSCULTATION: clear to auscultation bilaterally Cardio: COMMON NORMALS: regular rate and regular rhythm RATE: regular rate RHYTHM: regular rhythm GI: COMMON NORMALS: Soft to palpation PALPATION: Yes Soft to palpation and No Tenderness to palpation present (GI) Extremity: GENERAL: Yes normal exam except as noted and No edema Neuro: COMMON NORMALS: moves all extremities SENSORIUM/ORIENTATION: Yes alert and No Orientation impaired Psych: COMMON NORMALS: mental status grossly normal and Normal thought process present THOUGHT PROCESS: Normal thought process present Course Vital Signs: Vital signs: Vital Signs Temperature 97.1 F L 02/03/22 15:39 Pulse Rate 70 02/03/22 19:54 Respiratory Rate 16 02/03/22 19:54 Blood Pressure 150/85 02/03/22 19:54 Pulse Oximetry 100 02/03/22 19:54 Oxygen Delivery Me thod 02/03/22 18:15 Oxygen Flow Rate 3 02/03/22 18:15 MDM - Chest Pain Medical Decision Making 82-year-old lady presenting to the emergency department due to hypertension. Upon clarification there was a previous note of chest pain however patient denies any chest pain and has not had any earlier in the day. Patient nontoxic in appearance. No neurologic deficits associated with high blood pressure. EKG notable for sinus rhythm with left bundle branch block, no STEMI. Unremarkable hematologic panel. Metabolic panel with perhaps minimal evidence of dehydration. 2-hour delta troponin is negative and BNP is not significantly increased. COVID-negative. Chest x-ray with no lobar consolidation or pneumothorax. Patient treated for COPD exacerbation. This is most likely etiology of patient's symptoms though viral syndrome is also a consideration. Patient is at baseline oxygen and does not require admission at this time. The results of ED evaluation were discussed with the patient including prescriptions and/or symptomatic cares (if applicable) including appropriate and responsible use, followup plan, and return precautions. The patient verbalized understanding and felt safe for discharge. Medical Records I reviewed the patient's medical records. Lab Data I reviewed the patient's lab results. : 02/03/22 15:20 02/03/22 15:20 Radiology Impressions Chest X-Ray 02/03/22 15:19 IMPRESSION: 1. Pulmonary hyperinflation most likely indicating obstructive lung disease. No acute process noted. Laboratory Results WBC 4.5 10^3/uL (4.0-10.0) 02/03/22 15:20 RBC 4.54 10^6/uL (4.1-5.3) 02/03/22 15:20 Hgb 13.9 g/dL (11.5-15.3) 02/03/22 15:20 Hct 44.9 % (37.0-47.0) 02/03/22 15:20 MCV 98.9 fl (81-99) 02/03/22 15:20 MCH 30.6 pg (28.0-34.0) 02/03/22 15:20 MCHC 31.0 g/dL (30.0-36.0) 02/03/22 15:20 RDW 13.1 % (12.1-15.1) 02/03/22 15:20 Plt Count 221 10^3/cmm (130-400) 02/03/22 15:20 MPV 10.2 fL (7.4-10.4) 02/03/22 15:20 Neut % (Auto) 71.8 % 02/03/22 15:20 Lymph % (Auto) 19.2 % 02/03/22 15:20 Sargent % (Auto) 7.0 % 02/03/22 15:20 Eos % (Auto) 0.9 % 02/03/22 15:20 Baso % (Auto) 0.7 % 02/03/22 15:20 Neut # (Auto) 3.26 10^3/uL (1.8-7.7) 02/03/22 15:20 Lymph # (Auto) 0.9 10^3/uL (0.8-4.8) 02/03/22 15:20 Sargent # (Auto) 0.3 10^3/uL (0.2-0.9) 02/03/22 15:20 Eos # (Auto) 0.0 10^3/uL (0.0-0.8) 02/03/22 15:20 Baso # (Auto) 0.0 10^3/uL (0.0-0.1) 02/03/22 15:20 Nucleated RBC % (auto) 0 % 02/03/22 15:20 Nucleated RBCs # 0.0 /100WBC 02/03/22 15:20 Sodium 136 mmol/L (136-145) 02/03/22 15:20 Potassium 4.0 mmol/L (3.5-5.1) 02/03/22 15:20 Chloride 93 mmol/L (98-107) L 02/03/22 15:20 Carbon Dioxide 36 mmol/L (22-29) H 02/03/22 15:20 Anion Gap 11.0 (5-19) 02/03/22 15:20 BUN 13 mg/dL (8-23) 02/03/22 15:20 Creatinine 0.5 mg/dL (0.5-0.9) 02/03/22 15:20 GFR Calculation Not Reportable 02/03/22 15:20 Glucose 96 mg/dL (65-115) 02/03/22 15:20 Calculated Osmolality 282 mOsm/kg (285-295) L 02/03/22 15:20 Calcium 9.2 mg/dL (8.5-10.5) 02/03/22 15:20 Total Bilirubin 0.5 mg/dL (0.15-1.2) 02/03/22 15:20 AST 14 U/L (0-32) 02/03/22 15:20 ALT 9 U/L (0-33) 02/03/22 15:20 Alkaline Phosphatase 57 U/L (35-105) 02/03/22 15:20 Troponin T Baseline 33 ng/L (0-10) H 02/03/22 15:20 Troponin T 120 Minute 31.45 ng/L (0-10) H 02/03/22 17:30 Delta Troponin T -1.55 ABS# (0-10) L 02/03/22 17:30 NT-Pro-B Natriuret Pep 584 pg/mL (0-450) H 02/03/22 15:20 Total Protein 7.3 g/dL (6.6-8.7) 02/03/22 15:20 Albumin 4.3 g/dL (3.5-5.2) 02/03/22 15:20 Globulin 3.0 g/dL (1.3-4.6) 02/03/22 15:20 Lipase 25 U/L (13-60) 02/03/22 15:20 Coronavirus 229E (PCR) Not detected (NOT DETECT) 02/03/22 15:55 SARS-CoV-2 (PCR) Not detected (NOT DETECT) 02/03/22 15:55 Discharge Plan Discharge Patient Disposition: Home Clinical Impression: Malaise and fatigue, Acute exacerbation of chronic obstructive pulmonary disease Condition: Stable Prescriptions: New doxycycline hyclate 100 mg tablet 100 mg PO BID 10 Days Qty: 20 0RF No Action ipratropium-albuterol 0.5 mg-3 mg(2.5 mg base)/3 mL solution for nebulization 3 ml INHALATION TID levothyroxine [Synthroid] 50 mcg tablet 50 mcg PO QAM budesonide 0.5 mg/2 mL suspension for nebulization 0.5 mg inhalation BID albuterol sulfate 90 mcg/actuation HFA aerosol inhaler 2 puff INHALATION QID PRN (Reason: Shortness Of Breath) Echinacea and Goldenseal 450 mg Capsule 450 mg PO DAILY PRN (Reason: unknown) Ultram 50 mg Tablet 50 mg PO Q8H PRN (Reason: Pain) Ativan 0.5 mg Tablet 0.5 mg PO BID PRN (Reason: Anxiety) Discharge Orders: Discharge ED (Routine); Ordered 02/03/22 Ordered By: Aydin Pham Referrals: Rishabh Sin DO [Primary Care Provider] - Discharge Diet: Usual diet Discharge Activity: Resume usual activity Patient Instructions: COPD (Chronic Obstructive Pulmonary Disease) (ED) Activity Restrictions/Additional Instructions: Thank you for visiting the emergency department. You were seen and evaluated for generalized illness. The exact cause your symptoms is unclear though may be related to atypical infection with viral infection with exacerbation of underlying lung disease. I will prescribe steroids and antibiotics. Please also use your albuterol breathing treatments 2 puffs every 4 hours for 24 hours followed by every 6 hours for 24 hours followed by every 8 hours for 24 hours and then return to the normal schedule. Please follow-up with your primary care provider. Return to the emergency department for worsening symptoms or anything else that you are concerned about a feel needs emergency department evaluation. Coding Level of Care Code ED Manager Organizational for Mati Leach
[2022-02-03 15:59] LABS: Troponin(5th) Baseline 33 ng/L (0-10)
[2022-02-03] MEDS: sodium chloride 0.9% 1,000 ML 999 ML IV (15:59)
[2022-02-03 16:07] LABS: Alanine Aminotransferase 9 U/L (0-33); Albumin Level 4.3 g/dL (3.5-5.2); Alkaline Phosphatase 57 U/L (35-105); Aspartate Amino Transferase 14 U/L (0-32); Blood Urea Nitrogen 13 mg/dL (8-23); Calcium 9.2 mg/dL (8.5-10.5); Carbon Dioxide 36 mmol/L (22-29); Chloride 93 mmol/L (98-107); Glucose 96 mg/dL (65-115); Lipase 25 U/L (13-60); NT Pro B Type Natriuretic Pept 584 pg/mL (0-450); Osmolality Calculated 282 mOsm/kg (285-295); Sodium 136 mmol/L (136-145); Total Bilirubin 0.5 mg/dL (0.15-1.2); Total Protein 7.3 g/dL (6.6-8.7)
--- NOTE | 2022-02-03 17:19 | ECG_ITS ---
[facility] Test Date: 2022-02-03 Pat Name: Ysabel Edmondson Department: Room: Gender: Female Esl Teacher: : 1940 Requested By: Aydin Pham Order Number: [id number] Luis MD: Brandi Breaux M.D. Measurements Intervals [place] Rate: 78 P: 82 KS: 170 QRS: 31 QRSD: 146 T: 109 QT: 393 QTc: 448 Interpretive Statements SINUS RHYTHM LEFT BUNDLE BRANCH BLOCK [120+ ms QRS DURATION, 80+ ms Q/S IN V1/V2, 85+ ms R IN I/aVL/V5/V6] Compared to ECG 02/03/2022 15:19:43 No significant changes Electronically Signed On 02-03-2022 19:18:43 CDT by Brandi Breaux M.D. [email or web address]
[2022-02-03 17:24] VITALS: BP 142/97; PULSE 87
[2022-02-03 17:49] LABS: Adenovirus Not Detected (NOT DETECT); Chlamydia Pneumoniae Not Detected (NOT DETECT); Coronavirus 229E,HKU1,NL63,OC4 Not Detected (NOT DETECT); Human Metapneumovirus Not Detected (NOT DETECT); Human Rhinovirus/Enterovirus Not Detected (NOT DETECT); Influenza A Not Detected (NOT DETECT); Influenza A H1 Not Detected (NOT DETECT); Influenza A H1-2009 Not Detected (NOT DETECT); Influenza A H3 Not Detected (NOT DETECT); Influenza B Not Detected (NOT DETECT); Mycoplasma Pneumoniae Not Detected (NOT DETECT); Parainfluenza Virus Type 1 Not Detected (NOT DETECT); Parainfluenza Virus Type 2 Not Detected (NOT DETECT); Parainfluenza Virus Type 3 Not Detected (NOT DETECT); Parainfluenza Virus Type 4 Not Detected (NOT DETECT); Respiratory Syncytial Virus A Not Detected (NOT DETECT); Respiratory Syncytial Virus B Not Detected (NOT DETECT); SARS-COV-2 Not Detected (NOT DETECT)
[2022-02-03 18:06] LABS: Troponin 5 2HR 31.45 ng/L (0-10)
[2022-02-03 18:11] LABS: Troponin 5 2HR Delta -1.55 ABS# (0-10)
[2022-02-03 18:15] VITALS: PULSE 84; RESP 21; O2SAT 100
[2022-02-03] MEDS: ipratropium-albuterol 3 mL Neb INHALATION (18:23)
[2022-02-03 18:25] VITALS: PULSE 88
[2022-02-03] MEDS: doxycycline 100 mg Tablet PO (18:44)
[2022-02-03 19:54] VITALS: BP 150/85; PULSE 70; RESP 16; O2SAT 100
== END 2022-02-03 20:01 | disposition home or self-care (01) ==
PROVIDERS: Emergency Provider Emergency Medicine; PCP Internal Medicine
DX: J44.1 Chronic obstructive pulmonary disease with (acute) exacerbation (principal); R53.81 Other malaise; R53.83 Other fatigue; Z20.822 Contact with and (suspected) exposure to COVID-19
CPT/HCPCS: 71045; 80053; 83690; 83880; 84484; 85025; 87635; 93005; 94640; 96361; 96374; 99285; J2930; J7030